=== PATIENT | male | born 1990 | race Caucasian/White ===

== ENCOUNTER 2016-05-18 19:12 | Emergency (ER) | payer MEDICAID, OTHER ==
[~2016-05-18] VITALS: Ht 162.6 cm; Wt 63.0 kg
[2016-05-18 19:15] VITALS: BP 133/73; PULSE 112; RESP 15; TEMP 98; O2SAT 96
--- NOTE | 2016-05-18 19:42 | PD ---
HPI Chief Complaint: Psychiatric Symptoms Time Seen by Provider: 19:38 Travel History International Travel<30 days: No Contact w/Intl Traveler<30days: No Traveled to known affect area: No History of Present Illness HPI 25-year-old male presents to emergency department comely by his and mother for psychological evaluation. He states that he lives in [facility]. He had been seen by a primary care doctor in the urgent care a couple months ago. He was started on an antidepressant. He states it is been out of the medications now for over a month. He states that he does hear voices and see things that other people do not see. He states that he has had thoughts of self -harm but he has no intention on hurting himself. He denies any homicidal ideation. He does feel anxious at times and tremulous. He does have some loose stools and decreased appetite. He does have some problems sleeping at night. He's had increasing samaritan preoccupation. Family members deny feeling threatened at home or having any concern for their well being or the patient's well-being. They state that they're here to get the patient back on medications. 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 Social History Alcohol Use: No Tobacco Use: No Substance Use: No Allergies-Medications (Allergen,Severity, Reaction): Coded Allergies: No Known Allergies (Unverified , 05/18/16) Reported Meds & Prescriptions Reported Meds & Active Scripts Active No Active Prescriptions or Reported Medications Review of Systems Except as stated in HPI: all other systems reviewed are Neg General / Constitutional: No: Fever, Chills Eyes: No: Blurred Vision, Pain HENT: No: Congestion, Neck Pain Cardiovascular: No: Chest Pain or Discomfort, Tachycardia Respiratory: No: Cough, Shortness of Breath Gastrointestinal: Positive: Diarrhea, No: Nausea, Vomiting Genitourinary: No: Dysuria, Hematuria Musculoskeletal: No: Myalgias, Arthralgias Skin: No Rash, No Itching Neurologic: No: Dizziness, Headache Psychiatric: Positive: Anxiety, Depression, Disorder of Thought, Mood Disorder , No: Suicidal Ideations, Substance Abuse, Homicidal Ideation Physical Exam Narrative GENERAL: Well-nourished, well-developed patient. SKIN: Warm and dry. HEAD: Normocephalic and atraumatic. EYES: No scleral icterus. No injection or drainage. ENT: No nasal drainage noted. Mucous membranes pink. Airway patent. NECK: Supple, trachea midline. Moves head freely without obvious discomfort. CARDIOVASCULAR: Regular rate and rhythm without murmurs, gallops, or rubs. RESPIRATORY: Breath sounds equal bilaterally. No accessory muscle use. GASTROINTESTINAL: Abdomen soft, non-tender, nondistended. EXTREMITIES: No cyanosis or edema. BACK: Nontender without obvious deformity. No CVA tenderness. NEURO: Patient is alert and oriented. no sensorimotor deficits. Nonfocal. Normal speech. PSYCH: Increasing samaritan preoccupation Positive auditory and visual hallucinations. Data Data Last Documented VS Vital Signs Date Time Temp Pulse Resp B/P Pulse Ox O2 Delivery O2 Flow Rate FiO2 05/18/16 19:15 98.0 112 15 133/73 96 Room Air Orders Complete Blood Count With Diff (05/18/16 19:24) Comprehensive Metabolic Panel (05/18/16 19:24) Psych Screen (05/18/16 19:24) Drug Screen, Random Urine (05/18/16 19:24) Alcohol (Ethanol) (05/18/16 19:24) Labs Laboratory Tests Test 05/18/16 05/18/16 19:58 20:57 White Blood Count 7.3 TH/MM3 Red Blood Count 4.82 MIL/MM3 Hemoglobin 14.6 GM/DL Hematocrit 41.6 % Mean Corpuscular Volume 86.2 FL Mean Corpuscular Hemoglobin 30.2 PG Mean Corpuscular Hemoglobin 35.1 % Concent Red Cell Distribution Width 12.9 % Platelet Count 247 TH/MM3 Mean Platelet Volume 7.2 FL Neutrophils (%) (Auto) 67.7 % Lymphocytes (%) (Auto) 22.3 % Monocytes (%) (Auto) 8.3 % Eosinophils (%) (Auto) 1.0 % Basophils (%) (Auto) 0.7 % Neutrophils # (Auto) 4.9 TH/MM3 Lymphocytes # (Auto) 1.6 TH/MM3 Monocytes # (Auto) 0.6 TH/MM3 Eosinophils # (Auto) 0.1 TH/MM3 Basophils # (Auto) 0.1 TH/MM3 CBC Comment DIFF FINAL Differential Comment Sodium Level 139 MEQ/L Potassium Level 3.4 MEQ/L Chloride Level 103 MEQ/L Carbon Dioxide Level 26.4 MEQ/L Anion Gap 10 MEQ/L Blood Urea Nitrogen 17 MG/DL Creatinine 1.21 MG/DL Estimat Glomerular Filtration 74 ML/MIN Rate Random Glucose 150 MG/DL Calcium Level 8.9 MG/DL Total Bilirubin 0.6 MG/DL Aspartate Amino Transf 14 U/L (AST/SGOT) Alanine Aminotransferase 18 U/L (ALT/SGPT) Alkaline Phosphatase 62 U/L Total Protein 7.5 GM/DL Albumin 4.1 GM/DL Ethyl Alcohol Level LESS THAN 3 MG/DL Urine Opiates Screen NEG Urine Barbiturates Screen NEG Urine Amphetamines Screen NEG Urine Benzodiazepines Screen NEG Urine Cocaine Screen NEG Urine Cannabinoids Screen NEG MDM Medical Decision Making Medical Screen Exam Complete: Yes Emergency Medical Condition: Yes Medical Record Reviewed: Yes Interpretation(s) Laboratory Tests Test 05/18/16 05/18/16 19:58 20:57 White Blood Count 7.3 TH/MM3 Red Blood Count 4.82 MIL/MM3 Hemoglobin 14.6 GM/DL Hematocrit 41.6 % Mean Corpuscular Volume 86.2 FL Mean Corpuscular Hemoglobin 30.2 PG Mean Corpuscular Hemoglobin 35.1 % Concent Red Cell Distribution Width 12.9 % Platelet Count 247 TH/MM3 Mean Platelet Volume 7.2 FL Neutrophils (%) (Auto) 67.7 % Lymphocytes (%) (Auto) 22.3 % Monocytes (%) (Auto) 8.3 % Eosinophils (%) (Auto) 1.0 % Basophils (%) (Auto) 0.7 % Neutrophils # (Auto) 4.9 TH/MM3 Lymphocytes # (Auto) 1.6 TH/MM3 Monocytes # (Auto) 0.6 TH/MM3 Eosinophils # (Auto) 0.1 TH/MM3 Basophils # (Auto) 0.1 TH/MM3 CBC Comment DIFF FINAL Differential Comment Sodium Level 139 MEQ/L Potassium Level 3.4 MEQ/L Chloride Level 103 MEQ/L Carbon Dioxide Level 26.4 MEQ/L Anion Gap 10 MEQ/L Blood Urea Nitrogen 17 MG/DL Creatinine 1.21 MG/DL Estimat Glomerular Filtration 74 ML/MIN Rate Random Glucose 150 MG/DL Calcium Level 8.9 MG/DL Total Bilirubin 0.6 MG/DL Aspartate Amino Transf 14 U/L (AST/SGOT) Alanine Aminotransferase 18 U/L (ALT/SGPT) Alkaline Phosphatase 62 U/L Total Protein 7.5 GM/DL Albumin 4.1 GM/DL Ethyl Alcohol Level LESS THAN 3 MG/DL Urine Opiates Screen NEG Urine Barbiturates Screen NEG Urine Amphetamines Screen NEG Urine Benzodiazepines Screen NEG Urine Cocaine Screen NEG Urine Cannabinoids Screen NEG Differential Diagnosis MDM: High Differential diagnoses: Schizophrenia, schizoaffective disorder, bipolar, anxiety, depression, adjustment reaction, mood disorder NOS, ODD, depressive disorder NOS, dementia, dementia with agitation, psychosis NOS, substance induced mood disorder, intermittent explosive disorder, Asperger syndrome, infection,electrolyte abnormality, malingering. Mental health screening discussed with the patient. Psychiatric screen ordered. Narrative Course Mental health screening discussed with the patient. Psychiatric screen ordered. The patient has been seen by the psych screener who also agrees the patient does not meet inpatient management criteria. He is not suicidal homicidal. Family members feel comfortable taking him home. They will follow-up with [facility] Friday morning at 7 AM Diagnosis Primary Impression: Unspecified episodic mood disorder Referrals: [facility] (Out patient) 2 days Patient Instructions: General Instructions Additional Instructions: Rest. Follow-up with the recommendations of the psych screener. Follow-up with [facility] at 7 AM Friday morning. Return to the ER if any problems. Med/Other Pt SpecificInfo: No Meds Exist/No RX given Scripts No Active Prescriptions or Reported Meds Disposition: 01 DISCHARGE HOME Condition: Damian Amanda May 18, 2016 19:42
[2016-05-18 20:39] LABS: ANION GAP 10 MEQ/L (5-15); AUTOMATED NEUTROPHIL # 4.9 TH/MM3 (1.8-7.7); BASOPHIL # 0.1 TH/MM3 (0-0.2); BASOPHIL % 0.7 % (0.0-2.0); EOSINOPHIL # 0.1 TH/MM3 (0-0.4); HEMATOCRIT 41.6 % (39.0-51.0); HEMO FLAGS DIFF FINAL; LYMPH % 22.3 % (9.0-44.0); LYMPHOCYTE # 1.6 TH/MM3 (1.0-4.8); MEAN CELL VOLUME 86.2 FL (80.0-100.0); MEAN CORPUSCULAR HEMOGLOBIN 30.2 PG (27.0-34.0); MEAN CORPUSCULAR HGB CONC 35.1 % (32.0-36.0); MONO % 8.3 % (0.0-8.0); NEUT % 67.7 % (16.0-70.0); PLATELET COUNT 247 TH/MM3 (150-450); RED BLOOD COUNT 4.82 MIL/MM3 (4.50-5.90); RED CELL DISTRIBUTION WIDTH 12.9 % (11.6-17.2); WHITE BLOOD COUNT 7.3 TH/MM3 (4.0-11.0)
[2016-05-18 20:42] LABS: ALKALINE PHOSPHATASE 62 U/L (45-117); ALT (GPT) 18 U/L (12-78); AST (GOT) 14 U/L (15-37); BICARBONATE 26.4 MEQ/L (21.0-32.0); BLOOD UREA NITROGEN 17 MG/DL (7-18); CHLORIDE 103 MEQ/L (98-107); GLOMERULAR FILTRATION RATE 74 ML/MIN (>89); POTASSIUM 3.4 MEQ/L (3.5-5.1); SODIUM (NA) 139 MEQ/L (136-145); TOTAL BILIRUBIN ADULT 0.6 MG/DL (0.2-1.0)
[2016-05-18 21:35] LABS: AMPHETAMINE, URINE NEG (NEG); BARBITURATES, URINE NEG (NEG); COCAINE, URINE NEG (NEG)
== END 2016-05-19 01:45 | disposition home or self-care (01) ==
LOC: NEPB 19:12
DX: F39 Unspecified mood [affective] disorder (principal)
CPT/HCPCS: 80053; 80307; 85025; 99284